=== PATIENT | female | born 1990 | race Caucasian/White ===

== ENCOUNTER 2018-02-25 22:02 | Emergency (ER) | payer SELFPAY ==
[~2018-02-25 22:02] MED LIST: IBU600 PO; KET10 PO; ONDA4TAB PO; PREN-67 PO; [UNRECOGNIZED DRUG - CODE] PO
--- NOTE | 2018-02-25 22:04 | ER Report ---
History and Physical Time Seen By MD: 22:04 Allergies: Coded Allergies: No Known Drug Allergies (Unverified , 02/25/18) Home Meds Reported Medications Vits W-Ca,Fe,Fa(<1MG) ( VITAMINS) 1 Each Tablet, 1 EACH PO DAILY, TAB 02/25/18 Discontinued Reported Medications Evening [place] Oil (EVENING PRIMROSE) 500 Mg Capsule, 500 MG PO DAILY, CAPSULE 12/16/16 Discontinued Scripts Ondansetron (ZOFRAN ODT) 4 Mg Tab.rapdis, 4 MG PO Q6H Y for NAUSEA/VOMITING, # 20 TAB.STACIE 0 Refills Prov:NICANOR HATFIELD MD 12/16/16 Reviewed Nurses Notes: Yes Old Medical Records Reviewed: Yes Hx Smoking: Yes (1PPD) Smoking Status: Current: Every Day Smoker Hx Substance Use Disorder: No Constitutional Vital Sign - Last 24 Hours 02/25/18 22:10 Temp 98.0 Pulse 115 B/P (MAP) 133/85 Pulse Ox 94 O2 Delivery Room Air Depart Departure Latest Vital Signs Vital Signs Date Time Temp Pulse Resp B/P (MAP) Pulse Ox O2 Delivery O2 Flow Rate FiO2 02/25/18 22:10 98.0 115 133/85 94 Room Air EUGENE MANDUJANO DO Feb 25, 2018 22:04
[2018-02-25] MEDS ORDERED: PREN-127 PO (22:14)
--- NOTE | 2018-02-25 22:26 | ER Report ---
History and Physical Time Seen By MD: 22:25 Hx. of Stated Complaint: patient has bilateral ear pain and cough. right aer is worse, patient can't hear out of left ear. patient is 36weeks . HPI/ROS 27-year-old female is 34 weeks states that she flew to [place] 1 week ago started having left ear pain at that time did swims several times and they were in [place] when she came back started having pain in the right ear as well Allergies: Coded Allergies: No Known Drug Allergies (Unverified , 02/25/18) Home Meds Active Scripts Ciprofloxacin/Dexamethasone 0.3%-0.1% Otic Rolle (CIPRODEX 0.3%-0.1% OTIC SUSP) 7.5 Ml Soln, 3 ML EACH EAR BID for 7 Days, #1 BOTTLE Prov:IGLESIA NIX 02/25/18 Amoxicillin (AMOXICILLIN) 500 Mg Capsule, 1 CAP PO Q8H, #21 CAPSULE Prov:IGLESIA NIX 02/25/18 Reported Medications Vits W-Ca,Fe,Fa(<1MG) ( VITAMINS) 1 Each Tablet, 1 EACH PO DAILY, TAB 02/25/18 Discontinued Reported Medications Evening [place] Oil (EVENING PRIMROSE) 500 Mg Capsule, 500 MG PO DAILY, CAPSULE 12/16/16 Discontinued Scripts Ondansetron (ZOFRAN ODT) 4 Mg Tab.rapdis, 4 MG PO Q6H Y for NAUSEA/VOMITING, # 20 TAB.STACIE 0 Refills Prov:NICANOR HATFIELD MD 12/16/16 Past Medical/Surgical History currently 34 weeks Hx Smoking: Yes (1PPD) Smoking Status: Current: Every Day Smoker Hx Substance Use Disorder: No Family History of: HTN Constitutional Vital Sign - Last 24 Hours 02/25/18 22:10 Temp 98.0 Pulse 115 Resp 16 B/P (MAP) 133/85 Pulse Ox 94 O2 Delivery Room Air Physical Exam General Appearance: The patient is alert, has no immediate need for airway protection and no current signs of toxicity. [ ] Eyes: Pupils equal and round no injection. Ears left ear bulging tm red canal no drainage right ear bulging TM Respiratory: Chest is non tender, lungs are clear to auscultation. Cardiac: regular rate and rhythm [ ] Gastrointestinal: Abdomen is soft and non tender, no masses, bowel sounds normal. Musculoskeletal: Neck: Neck is supple and non tender. Extremities have full range of motion and are non tender. Skin: No rashes or lesions. [ ] DIFFERENTIAL DIAGNOSIS: After history and physical exam differential diagnosis was considered for otitis media, otitis externa, mastoiditis, cerumen impaction, [ ] Medical Decision Making ED Course/Re-evaluation ED Course Reviewed medication choices with Dr. Agarwal will give her amoxicillin 503 times a day for 7 days for her otitis for otitis externa she'll get Ciprodex 3 drops twice a day for a week Re-evaluation Tolerated medication home with prescriptions follow-up with ENT as ordered Decision to Disposition Date: Feb 25, 2018 Decision to Disposition Time: 22:46 Depart Departure Latest Vital Signs Vital Signs Date Time Temp Pulse Resp B/P (MAP) Pulse Ox O2 Delivery O2 Flow Rate FiO2 02/25/18 22:10 98.0 115 16 133/85 94 Room Air Impression: Primary Impression: Otitis media Additional Impression: External otitis of left ear Condition: Improved Disposition: HOME OR SELF-CARE Referrals: DUARTE CORTEZ JR, MD 5 Days ENT-OTOLARYNGOLOGY New Scripts Ciprofloxacin/Dexamethasone 0.3%-0.1% Otic Rolle (CIPRODEX 0.3%-0.1% OTIC SUSP) 7.5 Ml Soln 3 ML EACH EAR BID for 7 Days, #1 BOTTLE Prov: IGLESIA NIX 02/25/18 Amoxicillin (AMOXICILLIN) 500 Mg Capsule 1 CAP PO Q8H, #21 CAPSULE Prov: IGLESIA NIX 02/25/18 Patient Instructions: Otitis Externa (ED), Otitis Media (DC) Additional Instructions: Medication as prescribed follow-up with the ENT Problem Qualifiers IGLESIA NIX Feb 25, 2018 22:26
[2018-02-25 22:29] VITALS: BP 139/88
[2018-02-25] MEDS ORDERED: CIPDEXPT EACH EAR ×2 (22:33→22:37)
[2018-02-25] MEDS ORDERED: AMOX-362 PO (22:33)
[2018-02-25] MEDS ORDERED: CIPRO EACH EAR SCH (22:40)
[2018-02-25] MEDS ORDERED: AMOXICILLIN 500 MG CAP PO ONE (22:40)
[2018-02-25] MEDS ORDERED: HYDROCORT EACH EAR SCH (22:40)
== END 2018-02-25 23:02 | disposition home or self-care (01) ==
LOC: ER 22:33
DX: O26.893 Other specified pregnancy related conditions, third trimester (principal); H66.93 Otitis media, unspecified, bilateral; Z3A.34 34 weeks gestation of pregnancy
CPT/HCPCS: 99282

== ENCOUNTER → 2019-03-12 | Outpatient (CLI) | payer SELFPAY ==
[~2019-03-12] MED LIST changes: +AMOX-362 PO; +CIPDEXPT EACH EAR; +DIPH0.5S2 IM; +PREN-127 PO
== END ==
LOC: LAB 09:01
PROVIDERS: ATTEND Obstetrics & Gynecology
DX: Z02.9 Encounter for administrative examinations, unspecified (principal)

== ENCOUNTER → 2019-03-13 | Outpatient (CLI) | payer SELFPAY ==
--- NOTE | 2019-03-13 13:49 | RADIOLOGY IMAGING REPORT ---
FACILITY: [facility] [place] PATIENT NAME: Jaycee Pace : 1990 MR: [id number] V: [id number] EXAM DATE: ORDERING PHYSICIAN: NELLA MA TECHNOLOGIST: Location: [facility] Patient: Jaycee Pace : 1990 Visit/Account:[id number] Date of Sevice: 03/13/2019 OB ANATOMICAL SURVEY HISTORY: Unknown due date. No care COMPARISON: None FINDINGS: Intrauterine gestations: 1 presentation: Variable heart rate: 149 bpm Amniotic fluid volume: VANGIE 18 cm; Largest amniotic fluid pocket 6.0 cm Placenta: Posterior No placenta previa or retroplacental hemorrhage. Uterus: Gravid, otherwise normal. Apparent uterine contraction resulting in a uterine bulge along th e anterior aspect of the uterus during the study. Maternal adnexa: Negative Cervix: Closed Gestational Parameters: BPD: 6.5 cm; 26 weeks/ 2 days less than 2nd percentile HC: 24.5 cm; 26 weeks/ 5 days less than 2nd percentile AC: 21.7 cm; 26 weeks/ 2 days less than 2nd percentile FL: 4.9 cm; 26 weeks/ 4 days less than 2nd percentile Average ultrasound age (AUA): 26 weeks/ 4 days Estimated weight (EFW): 921 grams +/- 135 grams less than 2nd percentile. Anatomic Survey: Intracranial structures, 4-chamber heart, stomach, kidneys, urinary bladder, spine, 3-vessel cord and cord insertion are. Two upper and two lower extremities visualized. IMPRESSION: IUP of 26 weeks four days. PRECIOUS of 06/15/2019. This is behind the clinical LMP PRECIOUS of 05/23/2019. Ther e is good symmetric growth and normal anatomy. Wrong LMP likely accounting for the disparity in the percentiles. Report Dictated By: Rehan Weller MD at 03/13/2019 1:21 PM Report E-Signed By: Rehan Weller MD at 03/13/2019 1:44 PM WSN:[email or web address]
== END ==
LOC: US 00:25
PROVIDERS: ATTEND Obstetrics & Gynecology
DX: Z02.9 Encounter for administrative examinations, unspecified (principal)

== ENCOUNTER 2019-05-17 22:22 | Observation (INO) | payer SELFPAY ==
[~2019-05-17] VITALS: Ht 167.6 cm; Wt 93.9 kg
[~2019-05-17 22:22] MED LIST changes: +TRAZ50TA52 PO
[2019-05-18] VITALS: BP 114/79; Ht 167.6 cm; Wt 93.9 kg
--- NOTE | 2019-05-18 00:21 | History & Physical ---
History of Present Illness Age of Patient: 28 : 4 Para or TPAL: 3003 EDC per LMP: Jun 15, 2019 EDC per U/S: Jun 15, 2019 Estimated Gestational Age: 36.0 Chief Complaint painful uterine contractions History of Present Illness Mrs. Pace is a 28yo , lia 06/15/19, based on late second trimester ultrasound, who presents to labor and delivery with c/o painful uterine contractions for approximately 7 hours. She denies LOF, denies vaginal b leeding, reports normal movements. She denies QUINTERO, nausea/emesis, RUQ pain, or vision changes. She has no other complaints. Antepartum Issues: 1. late entry to care at 26 weeks, LIA based on 26 week ultrasound 2. multiparous, desires vasectomy 3. GBS positive in urine culture 03/2019 4. elevated one hour GCT, patient chose not to do 3 hour diagnostic testing History Patient's Blood Type: A Positive Rubella Status: Immune Group B Strep Screen: Positive (by urine culture) Miscellaneous Screens/Cultures: HIV negative, Hep B SAG neg, RPR NR Obstetrical History: 02/2010 42 week male 8'9" epidural uncomplicated 02/2015 41 week male 8'10" epidural uncomplicated 03/2017 40 week male, 7'5", epidural, uncomplicated Past Medical History: former tobacco use L elbow surgery as child L small finger surgery as child R ring finger surgery at age 16 Allergies: Coded Allergies: No Known Drug Allergies (Unverified , 02/25/18) Social History: , 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 No alcohol, drugs. Quit tobacco in November. Denies intimate partner violence. Med Rec Home Meds Active Scripts Trazodone Hcl (TRAZODONE HCL) 50 Mg Tablet, 50 MG PO QHS for Sleep for 30 Days, #30 TAB 2 Refills Prov:HAKAN MIDDLETON CNM 03/31/19 Reported Medications Vits W-Ca,Fe,Fa(<1MG) ( VITAMINS) 1 Each Tablet, 1 EACH PO DAILY, TAB 02/25/18 Review of Systems Constitutional: No Fever, No Weight Loss, No Weight Gain, No Chills, No Night Sweats, No Other Neurological: No Syncope, No Confusion, No Weakness, No Dizziness, No Slurred Speech, No Other Eyes: No Vision Change, No Loss of Vision, No Photophobia, No Other ENT: No Hearing Loss, No Sinus Congestion, No Sore Throat, No Ear Ache, No Tinnitus, No Other Cardiovascular: No Chest Pain, No Palpitations, No Orthostatic Hypotension, No Other Respiratory: No Shortness of Breath, No Cough, No Wheezing, No Other Gastrointestinal: No Nausea, No Vomiting, No Diarrhea, No Dysphagia, No Constipation, No Early Satiety, No Hematemesis, No Hematochezia, No Melena, No Abdominal Pain, No Other Genitourinary: No Dysuria, No Hematuria, No Urinary Incontinence, No Other Musculoskeletal: No Pain, No Sprain, No Strain, No Impaired Mobility, No Other Psychiatric: No Depression, No Anxiety, No Other Exam General Exam General Apperance: Alert/Awake/No Acute Distress Neuro: No Gross deficits Cardiovascular: Regular Rate and Rhythm Respiratory: Clear to Auscultation Abdomen: Soft, Non-Tender, Non-Distended, Gravid - Non-Tender Extremities: No Cyanosis,Clubbing or Edema Integumentary: Skin Intact without Lesions or Rash Psychological: Appropriate Mood & Affect Cervical Dialation: 0 Cervical Effacement (%): 25 Cervical Consistency: Moderate Cervical Position: Posterior Station: -3 Presentation: Vertex Uterine Contractions(Q min): 5 Uterine Contraction Strength: Moderate UC Resting Tone: Soft Fetus Feeling Movement?: Yes Estimated Weight(grams): 3200 Heart Tones: 130 Heart Tone Variabilty: Moderate FHT Accelerations: 15X15 FHT Decelerations: None FHT Category: I Medical Decision Making Pre-Admit Course Medical Record Review: Yes VTE Prophylasis: Adult Deep Vein Thrombosis/Pulmonary: No Pharmacological Contraindicati: Pt at Low Risk for VTE Mechanical Contraindications: Pt at Low Risk for VTE Assessment and Plan CARDIAC NURSE SPECIALIST Assessment: Stable CARDIAC NURSE SPECIALIST Plan: Discharge Home Today Problems: (1) uterine contractions in third trimester, antepartum Status: Acute Assessment & Plan: 28yo at 36.0 today based on 26 week ultrasound with contractions. No e/o labor. No cervical business change manager one hour of observation. Overall comfortable. testing reassuring. GBS positive based on urine culture. Will allow discharge home with labor precautions. F/U in office next week. TRINITY CORTEZ MD May 18, 2019 00:21
--- NOTE | 2019-05-18 00:24 | OB/GYN Discharge Summary ---
Discharge Summary Reason for Hosp/Final Diag: (1) uterine contractions in third trimester, antepartum Status: Acute Hospital Course & Plan: 28yo at 36.0 today based on 26 week ultrasound with contractions. No e/o labor. No cervical overhauler one hour of observation. Overall comfortable. testing reassuring. GBS positive based on urine culture. Will allow discharge home with labor precautions. F/U in office next week. Weight (Pounds): 207 Condition: Improved Discharge: Home Home Meds Active Scripts Trazodone Hcl (TRAZODONE HCL) 50 Mg Tablet, 50 MG PO QHS for Sleep for 30 Days, #30 TAB 2 Refills Prov:HAKAN MIDDLETON CNM 03/31/19 Reported Medications Vits W-Ca,Fe,Fa(<1MG) ( VITAMINS) 1 Each Tablet, 1 EACH PO DAILY, TAB 02/25/18 Follow up with: [facility] [phone] Follow up in: 5-7 days, Keep scheduled appoint Discharge Diet: As Tolerates Discharge Activity: As Tolerates TRINITY CORTEZ MD May 18, 2019 00:24
[2019-05-18] MEDS ORDERED: AMOX-362 PO (00:26)
[2019-05-19] MEDS ORDERED: BENZ100C4 PO (11:46)
== END 2019-05-17 23:41 | disposition home or self-care (01) ==
LOC: OB 22:22
PROVIDERS: ADMIT Obstetrics & Gynecology; ATTEND Obstetrics & Gynecology
DX: O47.03 False labor before 37 completed weeks of gestation, third trimester (principal); Z3A.36 36 weeks gestation of pregnancy; Z87.891 Personal history of nicotine dependence
CPT/HCPCS: G0378; G0379

== ENCOUNTER 2019-05-29 16:46 | Inpatient (IN) | payer SELFPAY ==
[~2019-05-29] VITALS: Ht 167.6 cm; Wt 93.9 kg
[~2019-05-29 16:46] MED LIST changes: +BENZ100C4 PO
[2019-05-29 17:05] VITALS: BP 140/81; Ht 167.6 cm; Wt 93.9 kg
--- NOTE | 2019-05-29 20:32 | History & Physical ---
History of Present Illness Age of Patient: 28 : 4 Para or TPAL: 3 EDC per U/S: Jun 15, 2019 Estimated Gestational Age: 37.4 Chief Complaint Contractions History of Present Illness 28-year-old at 37w4d presents for contractions. She has been feeling regular contractions for two weeks and is very frustrated. However, these contr actions worsened significantly over the past day. She noted they were more intense and more regular starting this afternoon. She denies LOF/VB. She reports movement, but it is significantly decreased over the past two days. care by IMG. complicated by late care at 26 weeks. She is dated by a 26wk US as her LMP was unknown. She failed her 1hr GTT and declined the 3hr GTT due to cost. She was supposed to do a HgA1C at [facility] [place] but never did. She is also had GBS bacteruria at her new OB visit. 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 No alcohol, drugs. Quit tobacco in November. Denies intimate partner violence. Med Rec Home Meds Active Scripts Benzonatate 100 Mg Cap (TESSALON PERLE 100 MG CAP) 100 Mg Capsule, 100 MG PO TID for cough, #30 CAP 0 Refills Prov:HAKAN MIDDLETON CN 05/19/19 Trazodone Hcl (TRAZODONE HCL) 50 Mg Tablet, 50 MG PO QHS for Sleep for 30 Days, #30 TAB 2 Refills Prov:HAKAN MIDDLETON CNM 03/31/19 Reported Medications Amoxicillin (AMOXICILLIN) 500 Mg Capsule, 2 CAP PO Q12H, #30 CAPSULE 05/18/19 Vits W-Ca,Fe,Fa(<1MG) ( VITAMINS) 1 Each Tablet, 1 EACH PO DAILY, TAB 02/25/18 Review of Systems Constitutional: No Fever Neurological: No Syncope Eyes: No Vision Change Cardiovascular: No Chest Pain Respiratory: No Shortness of Breath Gastrointestinal: No Nausea, No Vomiting, No Diarrhea Genitourinary: No Dysuria Musculoskeletal: No Pain Psychiatric: No Depression, No Anxiety Exam General Exam Vital Signs Vital Signs Date Time Temp Pulse Resp B/P (MAP) Pulse Ox O2 Delivery O2 Flow Rate FiO2 05/29/19 17:05 98.0 111 18 140/81 (100) 94 Room Air General Apperance: Alert/Awake/No Acute Distress Neuro: No Gross deficits Eyes: Normal Extraocular Movement & Vison Cardiovascular: Regular Rate and Rhythm Respiratory: No Respiratory Distress, Clear to Auscultation Abdomen: Gravid - Non-Tender : Normal Musculoskeletal: No Weakness/Pain Extremities: No Cyanosis,Clubbing or Edema Integumentary: Skin Intact without Lesions or Rash Psychological: Alert & Oriented X3, Appropriate Mood & Affect Cervical Dialation: 3 Cervical Effacement (%): 30 Cervical Consistency: Moderate Cervical Position: Anterior Station: -2 Presentation: Vertex Uterine Contractions(Q min): 3 Uterine Contraction Strength: Mild UC Resting Tone: Soft Fetus Heart Tones: 140 Heart Tone Variabilty: Minimal, Moderate FHT Accelerations: 15X15 FHT Decelerations: None FHT Category: I Medical Decision Making Pre-Admit Course Medical Record Review: Yes Assessment and Plan Problems: (1) Uterine contractions Assessment & Plan: 28-year-old at 37w4d presents for contractions and decreased movement. Her cervix has not dilated more but is now anterior, which is different from clinic. Will continue to monitor for cervical change. complicated by late care at 26 weeks. She is dated by a 26wk US as her LMP was unknown. (2) Decreased movement Assessment & Plan: With regards to her decreased movement, her heart tones are occasionally minimal variability but mostly moderate. There are accels and no decels. However, a BPP was ordered to further evaluate status. (3) Group B streptococcal bacteriuria Assessment & Plan: Will plan PCN in labor. (4) 37 weeks gestation of Problem Qualifiers (1) Decreased movement: Fetus number: single or unspecified fetus NELLA MA MD May 29, 2019 20:32
[2019-05-29] MEDS ORDERED: OXYTOCIN 30 UNIT/NS 500 ML 500 ML IV PRN (20:54)
[2019-05-29] MEDS ORDERED: FAMOTIDINE(*) 20MG/50ML PREMIX 50 ML IVPB PRN (20:54)
[2019-05-29] MEDS ORDERED: PENICILLIN G 5 MILLUN VIAL 5 MIU in NS(*) 0.9% 100 ML MINI-BAG 100 ML IVPB ONE (20:55)
[2019-05-29] MEDS ORDERED: fentaNYL CITR 100 MCG/2 ML AMP IVP PRN (20:55)
[2019-05-29] MEDS ORDERED: METOCLOPRAMIDE 10 MG/2 ML SDV IVP PRN (20:55)
[2019-05-29] MEDS ORDERED: LIDOCAINE 1% LOCAL 300 MG/30ML INJ PRN (20:55)
[2019-05-29] MEDS ORDERED: TERBUTALINE SULF 1 MG/ML VIAL IVP PRN (20:55)
[2019-05-29] MEDS ORDERED: FLUSH 10 ML SYR IVP PRN (20:55)
[2019-05-29] MEDS ORDERED: LIDOCAINE/SOD BICARB 8.4% SYR SC PRN (20:55)
--- NOTE | 2019-05-29 21:01 | Labor Progress Note ---
Labor Subjective Progress Notes Subjective Pt is feeling stronger contractions. She still does not feel significant movement. Labor Objective Vital Signs Vital Signs Date Time Temp Pulse Resp B/P (MAP) Pulse Ox O2 Delivery O2 Flow Rate FiO2 05/29/19 17:05 98.0 111 18 140/81 (100) 94 Room Air Fetus Heart Tones: 155 Heart Tone Variabilty: Minimal, Moderate FHT Accelerations: 15X15 FHT Decelerations: None General Exam General Appearance: Alert/Awake/No Acute Distress Psychological: Alert & Oriented X3, Appropriate Mood & Affect Other Imaging BPP: 6/8 (no breathing movements) Assessment and Plan Problems: (1) Uterine contractions Assessment & Plan: 28-year-old at 37w4d presents for contractions and decreased movement. Her BPP was 6/8, off for breathing movement. This in combination with decreased movement and off-and-on Category II tracing causes me concern for the well being of the fetus. She is also late care and may in fact be further along than we think. I have discussed this with [facility] who agrees to proceed with augmentation of labor now either way to effect delivery sooner. I have discussed with the patient and she agrees. Will start with PCN for now. Plan epidural soon. If needed, will augment with AROM and/or pitocin. (2) Decreased movement Assessment & Plan: As above. (3) Group B streptococcal bacteriuria Assessment & Plan: Will plan PCN in labor. (4) 37 weeks gestation of Problem Qualifiers (1) Decreased movement: Fetus number: single or unspecified fetus NELLA MA MD May 29, 2019 21:01
--- NOTE | 2019-05-29 21:25 | RADIOLOGY IMAGING REPORT ---
FACILITY: [facility] [place] PATIENT NAME: Jaycee Pace : 1990 MR: [id number] V: [id number] EXAM DATE: ORDERING PHYSICIAN: NELLA MA TECHNOLOGIST: Location: [facility] [place] Patient: Jaycee Pace : 1990 Visit/Account:[id number] Date of Sevice: 05/29/2019 EXAMINATION: Ultrasound biophysical profile HISTORY: Decreased variability or COMPARISON: Ultrasound dated March 13, 2019 FINDINGS: Intrauterine gestations: One. presentation: Cephalic heart rate: 147 bpm Amniotic fluid index: 10.0 cm Largest amniotic fluid pocket 6.3 cm Placenta: Posterior to the right of midline without previa. Biophysical profile: breathing movement 0 Gross body movement 2 tone 2 Qualitative amniotic fluid volume 2 Total biophysical profile score of 6/8 IMPRESSION: 1. Single live intrauterine gestation in vertex presentation. 2. Biophysical profile score of 6/8. 0/2 for breathing movement. Results were discussed with NELLA MA at 05/29/2019 9:18 PM. Report Dictated By: Fernando Kincaid MD at 05/29/2019 9:10 PM Report E-Signed By: Fernando Kincaid MD at 05/29/2019 9:18 PM WSN:[id number]
[2019-05-29] MEDS: LR(*) 1000 ML BAG 1,000 ML IV SCH ×2 (21:28→22:30)
[2019-05-29 21:41] LABS: PLATELET COUNT, AUTOMATED 242 K/uL (150-450)
[2019-05-29] MEDS ORDERED: BUPIVACAINE 0.25% MPF INJ EPI PRN (22:15)
[2019-05-29] MEDS ORDERED: LIDOCAINE/PF 2% 200MG/10ML AMP 200 MG/10 ML AMPUL EPI PRN (22:15)
[2019-05-29] MEDS ORDERED: LIDO/EPI 2% MPF 1:200,000 20ML EPI PRN (22:15)
[2019-05-29] MEDS ORDERED: FENTANYL/ROPIVACAINE 100 ML BAG EPI PRN (22:15)
[2019-05-29] MEDS ORDERED: BUPIVACAINE 0.5% INJ 30ML VIAL EPI PRN (22:15)
[2019-05-29] MEDS ORDERED: fentaNYL CITR 100 MCG/2 ML AMP IT PRN (22:15)
[2019-05-29] MEDS ORDERED: ONDANSETRON 4 MG/2 ML VIAL IVP PRN (22:15)
[2019-05-29] MEDS ORDERED: ePHEDrine 25 MG/5 ML DISP.SYR IVP ONE (22:26)
[2019-05-29] MEDS ORDERED: ePHEDrine 25 MG/5 ML DISP.SYR IVP PRN (23:05)
--- NOTE | 2019-05-29 23:10 | Anesthesia OB Pre-Anes Eval ---
History of Present Illness Anesthesia Start Date: May 29, 2019 Anesthesia Start Time: 22:26 OB Anesthesia Diagnosis: induction - medical EDC: Jun 15, 2019 : 4 Para: 3 Vital Signs: Vital Signs 05/29/19 17:05 Temp 98.0 Pulse 111 Resp 18 B/P (MAP) 140/81 (100) Pulse Ox 94 O2 Delivery Room Air Pain Ratin Heart Tones: 133 Result Diagram: 05/29/192117 Height (Inches): 66.00 Weight (Pounds): 207 BMI (kg/m2): 33.40 Past Medical History Medical History: obesity Previous Anesthesia: epidural Attended Childbirth Classes?: No Hx Anesthesia Reactions: No Hx Family Anesthesia Reaction: No Past Complications: obesity Home Meds Active Scripts Benzonatate 100 Mg Cap (TESSALON PERLE 100 MG CAP) 100 Mg Capsule, 100 MG PO TID for cough, #30 CAP 0 Refills Prov:HAKAN MIDDLETON [facility] 05/19/19 Trazodone Hcl (TRAZODONE HCL) 50 Mg Tablet, 50 MG PO QHS for Sleep for 30 Days, #30 TAB 2 Refills Prov:HAKAN MIDDLETON [facility] 03/31/19 Reported Medications Amoxicillin (AMOXICILLIN) 500 Mg Capsule, 2 CAP PO Q12H, #30 CAPSULE 05/18/19 Vits W-Ca,Fe,Fa(<1MG) ( VITAMINS) 1 Each Tablet, 1 EACH PO DAILY, TAB 02/25/18 Allergies: Coded Allergies: No Known Drug Allergies (Unverified , 02/25/18) Anesthesia OB ROS Neurological: No migraines/headaches, No seizures, No neuropathy, No other ENT: Denies Tooth caps, Denies Loose teeth, Denies Chipped teeth, Denies Dentures, Denies Bridges, Denies Retainers, Denies Veneers, Denies Implants, Denies Tongue ring, Denies Other Pulmonary: No asthma, No smoker (pks/day/yrs), No other Airway Class: ll Cardiovascular ROS: No edema, No arrhythmia, No other GI ROS: clear liquids Last Solids Date: May 29, 2019 Last Solids Time: 14:00 ROS: No Herpes, No STD(s), No Liver Disease, No Renal Disease, No Other Endocrine ROS: No diabetes, No gestational diabetes, No thyroid disorder, No other Musculoskeletal ROS: No low back pain, No low back injury, No scoliosis, No other ASA Classification: 2 Assessment and Plan Anesthesia Plan: LIAM SELF CRNA May 29, 2019 23:10
--- NOTE | 2019-05-29 23:13 | Procedure Note ---
Anesthetic Placement Note Anesthesia Plan: CSE Permit for Anesthesia Signed: Yes Anesthesia Technique: Patient Sitting Anesthesia Prep: Chlorhexidine Interspace: L 3-4 Local Anesthetic: 1% Lidocaine Amount Local - cc's: 3 Anesthesia Needle: 17g Touhy/Schliff Anesthesia Attempts: 1 Loss of Resistance: Normal Saline Depth of DEION (cm): 5.5 Epidural Needle Placement: No CSF, No Blood, No Parasthesia Intrathecal Needle: 27 Gauge Pencan Cerebral Spinal Fluid: Yes, Clear Catheter Insertion (cm): 5 Catheter Type: Brown - Spring Wound Epidural Dressing: Tegaderm, Tape Anesthesia Tray: Lot Number ([id number]), Expiration Date (07/01), Reference Number ([id number]) Anesthesia Medications: Intrathecal Dose: mcg Fentanyl (10), mg Marcaine MPF (2.5), Time (2240) Epidural Test Dose: 1.5 Lido/Epi (1:200,000), Dose - mL (3), Time (224) Epidural Infusion: 0.2% Ropivicaine, With Fentanyl 2mcg/ml, Start Time: (2256) Epidural Pump Setting: Bolus Dose - mL (8), Lockout - Minutes (30), Maintenance Rate - mL/hr (6), Maximum per Hour - mL (22) Complications: None LIAM CHARLTON CRNA May 29, 2019 23:13
[2019-05-30] MEDS: LR(*) 1000 ML BAG 1,000 ML IV SCH (00:39)
[2019-05-30] MEDS: PENICILLIN G 2.5 MILLUN/100 ML 100 ML IVPB SCH ×2 (01:12→05:27)
--- NOTE | 2019-05-30 02:34 | Labor Progress Note ---
Labor Subjective Progress Notes Subjective Pt is comfortable with epidural. No questions or concerns. Labor Objective Vital Signs Vital Signs Date Time Temp Pulse Resp B/P (MAP) Pulse Ox O2 Delivery O2 Flow Rate FiO2 05/29/19 17:05 98.0 111 18 140/81 (100) 94 Room Air Vaginal Discharge/Fluid?: Clear Fluid Cervical Dialation: 4 Cervical Effacement (%): 50 Cervical Consistency: Moderate Cervical Position: Anterior Station: -1 Presentation: Vertex Uterine Contractions(Q min): 5 Uterine Contraction Strength: Moderate UC Resting Tone: Soft Fetus Heart Tones: 160 Heart Tone Variabilty: Minimal, Moderate FHT Accelerations: 15X15 FHT Decelerations: None FHT Category: I General Exam General Appearance: Alert/Awake/No Acute Distress Respiratory: No Respiratory Distress : Normal Musculoskeletal: No Weakness/Pain Extremities: No Cyanosis,Clubbing or Edema Integumentary: Skin Intact without Lesions or Rash Psychological: Alert & Oriented X3, Appropriate Mood & Affect Other Result Diagram: 05/29/192117 Assessment and Plan Problems: (1) Decreased movement Assessment & Plan: Pt is comfortable with epidural and has progressed to 4cm but has slowed down contractions. AROM with clear fluid and pitocin protocol started. Will monitor for cervical change. status is ok. There are episodes of decreased variability between episodes of moderate. She is having accels and no decels. Will monitor closely. Prior A/P: 28-year-old at 37w4d presents for contractions and decreased movement. Her BPP was 6/8, off for breathing movement. This in combination with decreased movement and off-and-on Category II tracing causes me concern for the well being of the fetus. She is also late care and may in fact be further along than we think. I have discussed this with Ob[facility]et[facility] who agrees to proceed with augmentation of labor now either way to effect delivery sooner. I have discussed with the patient and she agrees. Will start with PCN for now. Plan epidural soon. If needed, will augment with AROM and/or pitocin. (2) Uterine contractions Assessment & Plan: As above. (3) Group B streptococcal bacteriuria Assessment & Plan: Continue PCN protocol. (4) 37 weeks gestation of Problem Qualifiers (1) Decreased movement: Fetus number: single or unspecified fetus NELLA MA MD May 30, 2019 02:34
--- NOTE | 2019-05-30 04:35 | Anesthesia Progress Note ---
Progress/Maintenance Anesthesia Note Date: May 30, 2019 Anesthesia Note Time: 04:30 Pain Intensity: 0 Pump: On Pump Rate (ML/HR): 6 Motor Level: Bending Knees-Bilateral Dilatation: 4 Position: Left, Tilt LIAM CHARLTON CRNA May 30, 2019 04:35
--- NOTE | 2019-05-30 05:28 | Labor Progress Note ---
Labor Subjective Progress Notes Subjective Pt is resting well. She feels more pressure but has no concerns. Labor Objective Vital Signs Vital Signs Date Time Temp Pulse Resp B/P (MAP) Pulse Ox O2 Delivery O2 Flow Rate FiO2 05/29/19 17:05 98.0 111 18 140/81 (100) 94 Room Air Vaginal Discharge/Fluid?: Clear Fluid Cervical Dialation: 5 Cervical Effacement (%): 70 Cervical Consistency: Moderate Cervical Position: Mid Station: -1 Presentation: Vertex Uterine Contractions(Q min): 3 Uterine Contraction Strength: Strong UC Resting Tone: Soft Fetus Heart Tones: 150 Heart Tone Variabilty: Minimal, Moderate FHT Accelerations: Present FHT Decelerations: Variable General Exam General Appearance: Other (Sleepy) Respiratory: No Respiratory Distress : Normal Musculoskeletal: No Weakness/Pain Extremities: No Cyanosis,Clubbing or Edema Integumentary: Skin Intact without Lesions or Rash Psychological: Alert & Oriented X3, Appropriate Mood & Affect Other Result Diagram: 05/29/192117 Assessment and Plan Problems: (1) Decreased movement Assessment & Plan: Pt is starting to dilate more but still somewhat moderate and has not effaced. Will continue pitocin. Monitor heart tones closely. Prior A/P: 28-year-old at 37w4d presents for contractions and decreased movement. Her BPP was 6/8, off for breathing movement. This in combination with decreased movement and off-and-on Category II tracing causes me concern for the well being of the fetus. She is also late care and may in fact be further along than we think. I have discussed this with [facility] who agrees to proceed with augmentation of labor now either way to effect delivery sooner. I have discussed with the patient and she agrees. Will start with PCN for now. Plan epidural soon. If needed, will augment with AROM and/or pitocin. (2) Uterine contractions Assessment & Plan: As above. (3) Group B streptococcal bacteriuria Assessment & Plan: Continue PCN protocol. (4) 37 weeks gestation of Problem Qualifiers (1) Decreased movement: Fetus number: single or unspecified fetus NELLA MA MD May 30, 2019 05:28
--- NOTE | 2019-05-30 08:02 | Labor Progress Note ---
Labor Subjective Progress Notes Subjective Pt is doing well, comfortable with epidural. Labor Objective Vital Signs Vital Signs Date Time Temp Pulse Resp B/P (MAP) Pulse Ox O2 Delivery O2 Flow Rate FiO2 05/29/19 17:05 98.0 111 18 140/81 (100) 94 Room Air Cervical Dialation: 7 Cervical Effacement (%): 70 Cervical Consistency: Moderate Cervical Position: Mid Station: -2 Presentation: Vertex Uterine Contractions(Q min): 3 Uterine Contraction Strength: Moderate UC Resting Tone: Soft Fetus FHT Category: I General Exam General Appearance: Alert/Awake/No Acute Distress Respiratory: No Respiratory Distress : Normal Musculoskeletal: No Weakness/Pain Extremities: No Cyanosis,Clubbing or Edema Integumentary: Skin Intact without Lesions or Rash Psychological: Alert & Oriented X3, Appropriate Mood & Affect Other Result Diagram: 05/29/192117 Assessment and Plan Problems: (1) Decreased movement Assessment & Plan: She is now 7cm. Will continue pitocin. Monitor heart tones closely. Prior A/P: 28-year-old at 37w4d presents for contractions and decreased movement. Her BPP was 6/8, off for breathing movement. This in combination with decreased movement and off-and-on Category II tracing causes me concern for the well being of the fetus. She is also late care and may in fact be further along than we think. I have discussed this with [facility] who agrees to proceed with augmentation of labor now either way to effect delivery sooner. I have discussed with the patient and she agrees. Will start with PCN for now. Plan epidural soon. If needed, will augment with AROM and/or pitocin. (2) Uterine contractions Assessment & Plan: As above. (3) Group B streptococcal bacteriuria Assessment & Plan: Continue PCN protocol. (4) 37 weeks gestation of Problem Qualifiers (1) Decreased movement: Fetus number: single or unspecified fetus NELLA MA MD May 30, 2019 08:02
--- NOTE | 2019-05-30 09:46 | OB Delivery Note ---
Delivery Note Delivery Date: May 30, 2019 Delivery Time: 09:26 Estimated Gestational Age(wks): 37.5 Delivery Anesthesia: Epidural Sex: Male Apgars: 1 Minute, 5 Minute Delivery Complications: Other (body cord X1) Notes: Pt was admitted to the family care unit on 05/29/19 @1649 in early labor @ 37 5/7 wga. Pt reported decreased movement times 2 days. BPP was done with results of 6/8 and periods of minimal variability so patient was augmented with Pitocin. Cervical exam on admission was 2/50/-2. She had AROM on 05/30/19 at 0137 for clear small fluid. Pt was GBS positive and received adequate treatment. FHR was CAT I primarily throughout first stage. Pt utilized co ntinuous lumbar epidural primarily for pain management. Pt was completely dilated on 05/30/19 at 0920 and pt began pushing at 0925. At 0926 pt had a NSVB of live male APGARS 7/9, weighing 2916g. The head delivered spontaneously in the OA position and restituted MARCIA with no nuchal cord, but one body cord easily reduced after . The anterior shoulder was delivered a traumatically and the posterior shoulder followed. Body delivered easily. Face was wiped with nose and bulb suction and then placed on the maternal abdomen. The infant was dried and stimulated and noted to have a spontaneous cry and spontaneous movement of all 4 extremities. Cord was clamped X 2 by DEBORAH after 60 sec and cut by patient's spouse and baby was then taken to the warmer for sluggish breathing without stimulation for evaluation. Mother was in SF position. At 0929 the placenta and membranes delivered spontaneous and intact with a 3 vessel cord after gentle downward traction. 30 units of Pitocin was placed in 500cc IV to firm the uterus and started immediately after placenta delivery. Upon inspection of the perineum it was found to be intact. Hemostasis observed. No repair necessary. EBL 200 with fundus firm with minimal bleeding. Mom and baby were left in stable condition. "I personally examined the patient and there are no unintended foreign objects in the vagina, and all sponge and lap counts were correct." Lizet Tripp CNM was present throughout the entire delivery with Dr. Yolanda Juarez as my OB backup Underwriting Analyst in Attendence: LIZET Gomez CNM May 30, 2019 09:46
[2019-05-30] MEDS ORDERED: ACETAMINOPHEN 325 MG TAB PO PRN (10:00)
[2019-05-30] MEDS ORDERED: APAP/HYDROCODONE 325/5 TAB PO PRN (10:00)
[2019-05-30] MEDS ORDERED: GLYCERIN/WITCH HAZEL LEAF 1 PK TP PRN (10:00)
[2019-05-30] MEDS ORDERED: LANOLIN OINT 7 GM TUBE TP PRN (10:00)
[2019-05-30] MEDS ORDERED: BENZOCAINE 20% 60 ML BTL TP PRN (10:00)
[2019-05-30] MEDS ORDERED: HYDROCORTISONE 2.5% CR 30GM TB PR PRN (10:00)
[2019-05-30] MEDS ORDERED: MAGNESIUM HYDROXIDE* 30ML UDCP PO PRN (10:00)
[2019-05-30] MEDS: DOCUSATE CALCIUM 240 MG CAP PO SCH ×2 (10:00→20:31)
--- NOTE | 2019-05-30 10:56 | Anesthesia Progress Note ---
Assessment and Plan Anesthesia Plan: CSE Anesthesia Stop Day: May 30, 2019 Anesthesia Stop Time: 09:45 LIAM CHARLTON CRNA May 30, 2019 10:56
[2019-05-30] MEDS: IBUPROFEN 800 MG TAB PO SCH ×2 (11:03→17:42)
[2019-05-30 15:00] VITALS: BP 115/58
[2019-05-30 19:20] VITALS: BP 119/68
[2019-05-31] MEDS: IBUPROFEN 800 MG TAB PO SCH ×2 (02:26→09:38)
[2019-05-31 02:29] VITALS: BP 128/69
[2019-05-31] MEDS ORDERED: SIMETHICONE 80 MG CHEW CHEW ONE (02:30)
[2019-05-31] MEDS: DOCUSATE CALCIUM 240 MG CAP PO SCH (08:39)
[2019-05-31 08:45] VITALS: BP 121/78
--- NOTE | 2019-05-31 08:54 | OB/GYN Progress Note ---
OB Objective Physical Exam Vital Signs Date Time Temp Pulse Resp B/P (MAP) Pulse Ox O2 Delivery O2 Flow Rate FiO2 05/31/19 02:29 98.5 100 128/69 (88) 05/30/19 19:20 16 05/30/19 15:00 92 05/29/19 17:05 Room Air Intake and Output 05/31/19 07:03 Intake Total 720 ml Output Total 500 ml Balance 220 ml Intake Oral 220 ml IV Total 500 ml Output Urine Total 500 ml # Voids 1 General Appearance: Alert/Awake/No Acute Distress Neurological: No Gross deficits Eyes: Normal Extraocular Movement & Vison Respiratory: No Respiratory Distress : Normal Musculoskeletal: No Weakness/Pain Extremities: No Cyanosis,Clubbing or Edema Integumentary: Skin Intact without Lesions or Rash Psychological: Alert & Oriented X3, Appropriate Mood & Affect Result Diagram: 05/31/19 0600 Assessment and Plan Problems: (1) Decreased movement Status: Resolved (2) Uterine contractions Status: Resolved (3) Group B streptococcal bacteriuria Status: Resolved (4) 37 weeks gestation of Status: Resolved Problem Qualifiers (1) Decreased movement: Fetus number: single or unspecified fetus HAKAN MIDDLETON CNM May 31, 2019 08:54
--- NOTE | 2019-05-31 08:55 | OB/GYN Discharge Summary ---
Discharge Summary Reason for Hosp/Final Diag: (1) Decreased movement Status: Resolved (2) Uterine contractions Status: Resolved (3) Group B streptococcal bacteriuria Status: Resolved (4) 37 weeks gestation of Status: Resolved (5) care and examination immediately after delivery Onset Date: ~ 05/30/2019 Status: Acute (6) (normal spontaneous vaginal delivery) Status: Resolved Hospital Course & Plan: Admission Diagnoses: IOL for indications Reason for Hospitalization: IOL , and care Procedures Performed: none Delivery Type: Hospital Course: 28-year-old at 37w4d presented with contractions on 05/29/19. She reported movement, but it was significantly decreased over the past two days. care by IMG. complicated by late care at 26 weeks. She is dated by a 26wk US as her LMP was unknown. She failed her 1hr GTT and declined the 3hr GTT due to cost. She was supposed to do a HgA1C at [facility] but never did. She is also had GBS bacteruria at her new OB visit. Her BPP was 6/8, off for breathing movement. This in combination with decreased movement and off-and-on Category II tracing caused concern for the well being of the fetus. She was also late care and may in fact have been further along than we think. Discussed this with [facility] who agrees to proceed with augmentation of labor at that time. She received adequate treatment for GBS. Augmented with AROM and Pitocin. (2) Decreased movement Delivery Information: see delivery note Estimated blood loss: 200 Episiotomy: none Laceration: none Pain Management: epidural Subjective: Pt is doing very well today and is ready to go home Abdominal pain: None Perineal pain: none Vaginal bleeding: minimal to scant without clots Flatus: yes UTI symptoms: Denies Feeding modality: Breast Problems with breast feeding: None Bowel movement: no Ambulating: yes Preeclampsia symptoms: denies Nausea/vomiting: none experience: Very satisfied control: plans for a vasectomy and condoms at 6 weeks Objective Exam: Meeting all normal milestones Vitals: normotensive and afebrile Breasts: soft, non tender, nipples everted without cracks or bleeding, + colostrum Abdomen: FF 1<U Perineum: intact Lochia: moderate without clots Extremities: BLE soft, nontender and -homans sign Disposition: Patient discharged to home in medically stable condition. No Known Allergies Medication Instructions Given to the Patient at Discharge: Take Ibuprofen 800mg PO TID for 5-7 days as needed Follow-up Appointment: 3 weeks with Lizet Tripp CNM Activity/Restrictions: Pelvic rest; nothing in vagina for six weeks. Return Precautions: Patient instructed to call the clinic or return to hospital for fever > 101 degree F; chills; severe nausea or vomiting; inability to tolerate anything by mouth for > 24 hours; increasingly severe abdominal/pelvic pain; foul smelling vaginal discharge; vaginal bleeding > 1 pad per hour for > 2 hours; separation, drainage, or redness of incision or laceration site. Reviewed depression and pre-eclampsia s/s and when to seek care. [place] Vital Signs Vital Signs Date Time Temp Pulse Resp B/P (MAP) Pulse Ox O2 Delivery O2 Flow Rate FiO2 05/31/19 02:29 98.5 100 128/69 (88) 05/30/19 19:20 16 05/30/19 15:00 92 05/29/19 17:05 Room Air Weight (Pounds): 207 Result Diagram: 05/31/19 0600 Condition: Improved Discharge: Home Home Meds Active Scripts Ibuprofen (IBUPROFEN) 800 Mg Tablet, 800 MG PO Q8H@0200,1000,1800, #30 TAB 0 Refills Prov:LIZET TRIPP CNM 05/31/19 Benzonatate 100 Mg Cap (TESSALON PERLE 100 MG CAP) 100 Mg Capsule, 100 MG PO TID for cough, #30 CAP 0 Refills Prov:LIZET TRIPP CNM 05/19/19 Trazodone Hcl (TRAZODONE HCL) 50 Mg Tablet, 50 MG PO QHS for Sleep for 30 Days, #30 TAB 2 Refills Prov:LIZET TRIPP CNM 03/31/19 Reported Medications Amoxicillin (AMOXICILLIN) 500 Mg Capsule, 2 CAP PO Q12H, #30 CAPSULE 05/18/19 Vits W-Ca,Fe,Fa(<1MG) ( VITAMINS) 1 Each Tablet, 1 EACH PO DAILY, TAB 02/25/18 Follow up Referrals: PIPELINE EXECUTIVE - In Two Weeks @ [facility] with LIZET TRIPP CNM Discharge Diet: As Tolerates, Resume Prior Admit Diet, Increase Fluid Intake Discharge Activity: As Tolerates, Pelvic Rest Problem Qualifiers (1) Decreased movement: Fetus number: single or unspecified fetus LIZET TIRPP CNM May 31, 2019 08:55
[2019-05-31] MEDS ORDERED: IBUP800T37 PO (08:56)
--- NOTE | 2019-05-31 12:15 | Anesthesia Post Eval Note ---
Anesthesia Post Eval Note Vital Signs Date Time Temp Pulse Resp B/P (MAP) Pulse Ox O2 Delivery O2 Flow Rate FiO2 05/31/19 08:45 97.7 93 16 121/78 (92) 91 Room Air Hematology Test 05/29/19 21:18 05/31/19 06:00 Neutrophils (%) (Auto) 71.4 % (39.4-72.5) Lymphocytes (%) (Auto) 19.8 % (17.6-49.6) Monocytes (%) (Auto) 5.7 % (4.1-12.4) Eosinophils (%) (Auto) 2.3 % (0.4-6.7) Basophils (%) (Auto) 0.8 % (0.3-1.4) Nucleated RBC Relative Count (auto) 0.2 /100WBC Neutrophils # (Auto) 6.2 K/uL (2.0-7.4) Lymphocytes # (Auto) 1.7 K/uL (1.3-3.6) Monocytes # (Auto) 0.5 K/uL (0.3-1.0) Eosinophils # (Auto) 0.2 K/uL (0.0-0.5) Basophils # (Auto) 0.1 K/uL (0.0-0.1) Nucleated RBC Absolute Count (auto) 0.02 K/uL White Blood Count 7.9 k/uL (4.5-11.0) Red Blood Count 3.78 M/uL (4.17-5.56) L Hemoglobin 11.8 g/dL (12.0-16.0) L Hematocrit 33.7 % (34.0-47.0) L Mean Corpuscular Volume 89.0 fL (80.0-96.0) Mean Corpuscular Hemoglobin 31.1 pg (26.0-33.0) Mean Corpuscular Hemoglobin Concent 34.9 g/dL (32.0-36.0) Red Cell Distribution Width 13.1 % (11.5-14.5) Platelet Count 226 K/uL (150-450) Mean Platelet Volume 8.4 fL (7.2-11.1) Pt able to participate in Eval: Yes Cardiovascular Status: Satisfactory Respiratory Status: Satisfactory Pain Managment: Satisfactory PO Nausea/Vomiting: Satisfactory Temperature Management: Satisfactory Mental Status: Satisfactory, Alert, Oriented X3 Post-Op Hydration Status: Satisfactory, Tolerating PO Well, Voiding w/o Difficulty Anesthesia Type: LEB Anesthesia Tolerance: Pt expresses satisfaction with epidural for labor pain. Signs of infection are reviewed and pt agrees to seek medical attention should these or persistent QUINTERO occur. Stick site is w/o redness swelling or drainage. She has ambulated and has full bilateral sensation. No anesthesia associated complications noted. STEVEN DUNLAP GROUND CREW[employer] [place] [employer] May 31, 2019 12:15
== END 2019-05-31 13:05 | disposition home or self-care (01) | DRG 807 ==
LOC: OB 16:46
PROVIDERS: ADMIT Obstetrics & Gynecology; ATTEND Obstetrics & Gynecology
PROC: 10E0XZZ Delivery of Products of Conception, External Approach (ICD-10-PCS; principal; 2019-05-30)
PROC: 10907ZC Drainage of Amniotic Fluid, Therapeutic from Products of Conception, Via Natural or Artificial Opening (ICD-10-PCS; 2019-05-30)
DX: O99.824 Streptococcus B carrier state complicating childbirth (principal); Z37.0 Single live birth; O69.2XX0 Labor and delivery complicated by other cord entanglement, with compression, not applicable or unspecified; O76 Abnormality in fetal heart rate and rhythm complicating labor and delivery; Z3A.37 37 weeks gestation of pregnancy
CPT/HCPCS: 36415; 76819; 85025; 85027; 86850; 86900; 86901; J2405; J2540; J2590; J7120